=== PATIENT | female | born 1965 | race Caucasian/White ===

== ENCOUNTER 2019-08-02 12:01 | Emergency (ER) | payer OTHER ==
[~2019-08-02] VITALS: Ht 170.2 cm; Wt 68.0 kg
[2019-08-02] MEDS ORDERED: SODIUM CHLORIDE 0.9% 1,000 ML IV ONE ×3 (12:42→20:00)
[2019-08-02] MEDS ORDERED: chlordiazePOXIDE HCL 5 MG CAP PO ONE (12:45)
[2019-08-02] MEDS ORDERED: THIAMINE 100mg/ml INJ (200mg/2ml VIAL) IV ONE (12:45)
[2019-08-02 12:55] LABS: Urine Bacteria FEW /hpf (None Seen); Urine Blood Negative /uL (Negative); Urine Mucus FEW (None Seen); Urine Specific Gravity 1.005 (1.001-1.035); Urine WBC 21 /hpf (0 - 5)
[2019-08-02 13:05] LABS: Basophils # (auto) 0 uL; Basophils % (auto) 1.1 % (0.0-2.0); Eosinophils # (auto) 0.1 uL; Eosinophils % (auto) 2.7 % (0.0-7.0); Hematocrit 43.1 % (36.0-46.0); Hemoglobin 14.9 g/dL (12.2-16.2); Lymphocytes # (auto) 1.1 uL; Lymphocytes % (auto) 36.8 % (10.0-50.0); Mean Corpuscular Hemoglobin 32.7 pg (28.0-32.0); Mean Corpuscular Hgb Conc. 34.5 g/dL (32.0-36.0); Mean Corpuscular Volume 94.8 fL (80.0-100.0); Monocytes # (auto) 0.2 uL; Monocytes % (auto) 7.9 % (0.0-12.0); Neutrophils # (auto) 1.6 uL; Neutrophils % (auto) 51.5 % (37.0-80.0); Nucleated Red Blood Cells % 0.2 %; Platelet Count (auto) 228 10^3/uL (140-450); Red Blood Cells 4.54 10^6/uL (4.0-5.20); Red Cell Distribution Width 13.1 % (11.8-14.3)
[2019-08-02 13:10] LABS: Amphetamine Screen, Urine NEGATIVE (NEGATIVE); Barbiturate Scree,Urine NEGATIVE (NEGATIVE); Benzodiazephine Screen, Urine NEGATIVE (NEGATIVE); Cannabinoid Screen, Urine POSITIVE (NEGATIVE); Cocaine Screen, Urine NEGATIVE (NEGATIVE); Opiate Scree,Urine NEGATIVE (NEGATIVE); Phencyclidine Screen, Urine NEGATIVE (NEGATIVE)
[2019-08-02 13:26] LABS: Albumin 3.5 g/dL (3.4-5.0); BUN/Creatinine Ratio 18.3; Calcium 8.9 mg/dL (8.5-10.1); Potassium 3.9 mmol/L (3.5-5.1)
[2019-08-02 13:27] LABS: Salicylate 2.8 mg/dL (2.8-20.0)
[2019-08-02 13:28] LABS: Acetaminophen < 2.0 ug/mL (10-30)
[2019-08-02 13:42] LABS: Bilirubin, Total 0.2 mg/dL (0.2-1.0); Total Protein 7.5 g/dL (6.4-8.2)
[2019-08-02] MEDS ORDERED: ACETAMINOPHEN 325 MG TAB PO ONE (22:15)
[2019-08-03] MEDS ORDERED: LORazepam 0.5 MG TAB PO ONE (07:45)
[2019-08-03 07:57] VITALS: BP 155/119
== END 2019-08-03 08:19 | disposition short-term general hospital (02) ==
LOC: EDBD 12:01 → ER 12:08
DX: S61.512A Laceration without foreign body of left wrist, initial encounter (principal); R45.851 Suicidal ideations; N39.0 Urinary tract infection, site not specified; F32.9 Major depressive disorder, single episode, unspecified; F10.129 Alcohol abuse with intoxication, unspecified; W26.9XXA Contact with unspecified sharp object(s), initial encounter; Y93.89 Activity, other specified; Y99.8 Other external cause status; Y92.89 Other specified places as the place of occurrence of the external cause
CPT/HCPCS: 36415; 80053; 80307; 80320; 80329; 81001; 85025; 96374; 99285; J3411

== ENCOUNTER 2019-09-14 15:01 | Emergency (ER) | payer OTHER ==
[~2019-09-14] VITALS: Ht 165.1 cm; Wt 72.6 kg
[2019-09-14] MEDS ORDERED: SODIUM CHLORIDE 0.9% 1,000 ML IVB ONE (15:29)
[2019-09-14 15:49] LABS: Basophils # (auto) 0 uL; Basophils % (auto) 0.5 % (0.0-2.0); Eosinophils # (auto) 0 uL; Eosinophils % (auto) 0.8 % (0.0-7.0); Hematocrit 44.6 % (36.0-46.0); Hemoglobin 15.3 g/dL (12.2-16.2); Lymphocytes # (auto) 1.1 uL; Mean Corpuscular Hgb Conc. 34.3 g/dL (32.0-36.0); Mean Corpuscular Volume 93.3 fL (80.0-100.0); Monocytes # (auto) 0.2 uL; Monocytes % (auto) 5.9 % (0.0-12.0); Neutrophils # (auto) 2.3 uL; Neutrophils % (auto) 62.8 % (37.0-80.0); Platelet Count (auto) 214 10^3/uL (140-450); Red Blood Cells 4.78 10^6/uL (4.0-5.20); Red Cell Distribution Width 13.1 % (11.8-14.3); White Blood Cell 3.7 10^3/uL (4.4-10.8)
[2019-09-14 16:10] LABS: Albumin 3.9 g/dL (3.4-5.0); Calcium 9.5 mg/dL (8.5-10.1); Potassium 3.5 mmol/L (3.5-5.1)
[2019-09-14 16:13] LABS: BUN/Creatinine Ratio 12.3; Bilirubin, Total 0.2 mg/dL (0.2-1.0); Total Protein 8.1 g/dL (6.4-8.2)
[2019-09-14 17:18] LABS: Salicylate 3.4 mg/dL (2.8-20.0)
[2019-09-14 17:20] LABS: Acetaminophen < 2.0 ug/mL (10-30)
[2019-09-14] MEDS ORDERED: THIAMINE HCL 100 MG TAB PO ONE (19:00)
[2019-09-15 09:04] LABS: Urine Bacteria MANY /hpf (None Seen); Urine Blood TRACE /uL (Negative); Urine Mucus FEW (None Seen); Urine Specific Gravity 1.017 (1.001-1.035); Urine WBC 265 /hpf (0 - 5)
[2019-09-15 09:11] LABS: Amphetamine Screen, Urine NEGATIVE (NEGATIVE); Barbiturate Scree,Urine NEGATIVE (NEGATIVE); Benzodiazephine Screen, Urine POSITIVE (NEGATIVE); Cannabinoid Screen, Urine POSITIVE (NEGATIVE); Cocaine Screen, Urine NEGATIVE (NEGATIVE); Opiate Scree,Urine NEGATIVE (NEGATIVE); Phencyclidine Screen, Urine NEGATIVE (NEGATIVE)
[2019-09-15] MEDS ORDERED: cefTRIAXone 1GM/50ML D5W 50 ML IV ONE (10:00)
[2019-09-15 11:55] VITALS: BP 108/75
== END 2019-09-15 12:11 | disposition psychiatric hospital, planned readmission (93) ==
LOC: ER 15:01 → EDBD 15:01 → ER 09-15 12:11
DX: T50.902A Poisoning by unspecified drugs, medicaments and biological substances, intentional self-harm, initial encounter (principal); F10.129 Alcohol abuse with intoxication, unspecified; R45.851 Suicidal ideations; F41.9 Anxiety disorder, unspecified; F32.9 Major depressive disorder, single episode, unspecified; Z98.51 Tubal ligation status; Z90.89 Acquired absence of other organs; Y92.89 Other specified places as the place of occurrence of the external cause
CPT/HCPCS: 36415; 80053; 80307; 80320; 80329; 81001; 82962; 85025; 93005; 96365; 99285; J0696

== ENCOUNTER 2020-03-12 15:11 | Inpatient (IN) | payer OTHER ==
[~2020-03-12] VITALS: Ht 154.9 cm; Wt 68.0 kg
[2020-03-12 16:37] LABS: Basophils # (auto) 0 10 ^3/uL (0-0.2); Basophils % (auto) 0.5 % (0.0-2.0); Eosinophils # (auto) 0 10 ^3/uL (0-0.8); Eosinophils % (auto) 1.2 % (0.0-7.0); Lymphocytes # (auto) 0.8 10 ^3/uL (0.4-5.4); Lymphocytes % (auto) 24.2 % (10.0-50.0); Mean Corpuscular Hemoglobin 32.5 pg (28.0-32.0); Mean Corpuscular Hgb Conc. 33.2 g/dL (32.0-36.0); Mean Corpuscular Volume 97.8 fL (80.0-100.0); Monocytes # (auto) 0.2 10 ^3/uL (0-1.3); Neutrophils # (auto) 2.4 10 ^3/uL (1.6-8.6); Neutrophils % (auto) 68.1 % (37.0-80.0); Nucleated Red Blood Cells % 0.1 %; Platelet Count (auto) 200 10^3/uL (140-450); White Blood Cell 3.5 10^3/uL (4.4-10.8)
[2020-03-12] MEDS ORDERED: SODIUM CHLORIDE 0.9% 1,000 ML IV ONE ×2 (16:45→20:45)
[2020-03-12 16:55] LABS: Acetaminophen < 2.0 ug/mL (10-30); Albumin 3.4 g/dL (3.4-5.0); BUN/Creatinine Ratio 17.1; Calcium 9.3 mg/dL (8.5-10.1); Magnesium 2.4 mg/dL (1.6-2.6); Potassium 3.4 mmol/L (3.5-5.1); Salicylate < 1.7 mg/dL (2.8-20.0)
[2020-03-12 17:01] LABS: Bilirubin, Total 0.3 mg/dL (0.2-1.0); Total Protein 6.9 g/dL (6.4-8.2)
[2020-03-12 20:19] LABS: Urine Bacteria NONE SEEN /hpf (None Seen); Urine Blood Negative /uL (Negative); Urine Specific Gravity 1.007 (1.001-1.035); Urine WBC 1 /hpf (0 - 5)
[2020-03-12 20:42] LABS: Amphetamine Screen, Urine NEGATIVE (NEGATIVE); Barbiturate Scree,Urine NEGATIVE (NEGATIVE); Benzodiazephine Screen, Urine NEGATIVE (NEGATIVE); Cannabinoid Screen, Urine POSITIVE (NEGATIVE); Cocaine Screen, Urine NEGATIVE (NEGATIVE); Opiate Scree,Urine NEGATIVE (NEGATIVE); Phencyclidine Screen, Urine NEGATIVE (NEGATIVE)
[2020-03-12] MEDS ORDERED: ONDANSETRON HCL 4 MG/2 ML VIAL IV PRN (21:30)
[2020-03-12] MEDS ORDERED: ACETAMINOPHEN 325 MG TAB PO PRN (21:30)
[2020-03-12] MEDS: FAMOTIDINE 20 MG TAB PO SCH (22:59)
[2020-03-12] MEDS: SODIUM CHLORIDE 0.9% 1,000 ML IV SCH (23:00)
[2020-03-13] MEDS: FAMOTIDINE 20 MG TAB PO SCH ×2 (10:06→21:31)
[2020-03-13] MEDS: SODIUM CHLORIDE 0.9% 1,000 ML IV SCH (11:02)
[2020-03-13] MEDS ORDERED: chlordiazePOXIDE HCL 25 MG CAP PO PRN (11:45)
[2020-03-13] MEDS: FOLIC ACID 1 MG, MULTIPLE VITAMIN 10 ML, MAGNESIUM SULF SDV 50% 8 MEQ, THIAMINE INJ 100... INJ SCH ×5 (12:30)
[2020-03-13 17:00] VITALS: BP 123/81
[2020-03-13 17:47] VITALS: BP 123/81
[2020-03-13] MEDS ORDERED: FLUO60TA7 PO (17:49)
--- NOTE | 2020-03-13 19:00 | NUR ---
Opening Shift Note Assumed care of patient, awake and alert. No S/S of distress/SOB or pain. Instructed on POC and to call for assist PRN, will continue to monitor for changes Q1hr and PRN.
--- NOTE | 2020-03-13 20:00 | NUR ---
IMPORTANT INFORMATION. I WAS ASSESSING MY PATIENT TODAY, PATIENT TOLD ME SHE HAS AN ALCOHOL PROBLEM. SHE SAID SHE GETS REALLY DRUNK 1 TIME PER WEEK. PATIENT SAID SHE DOES NOT REMEMBER AND DID NOT TAKE THE OVER DOSE OF PROZAC INTENTIONALLY. SHE SAID SHE WAS BLACKOUT DRUNK AT THE TIME. PATIENT SAID SHE INTENDS TO SEEK PSYCHOLOGICAL HELP AND ATTEND AA.
[2020-03-13 21:54] VITALS: BP 123/82
--- NOTE | 2020-03-14 | NUR ---
Rounds Patient is asleep.. No S/S of distress/SOB or pain. Will continue to monitor changes q1hr and PRN.
[2020-03-14 04:33] VITALS: BP 126/84
[2020-03-14] MEDS: SODIUM CHLORIDE 0.9% 1,000 ML IV SCH ×2 (04:47→13:32)
[2020-03-14 09:00] VITALS: BP 144/74
[2020-03-14] MEDS: FAMOTIDINE 20 MG TAB PO SCH ×2 (09:51→22:09)
[2020-03-14 09:58] LABS: Albumin 3.1 g/dL (3.4-5.0); Anion Gap 6 (5-15); Blood Urea Nitrogen 12 mg/dL (7-18); Calcium 8.5 mg/dL (8.5-10.1); Carbon Dioxide 26 mmol/L (21-32); Chloride 105 mmol/L (98-107); Glucose 82 mg/dL (74-106); Potassium 3.8 mmol/L (3.5-5.1); Sodium 137 mmol/L (136-145)
[2020-03-14 10:04] LABS: Alanine Aminotransferase 33 U/L (13-56); Alkaline Phosphatase 49 U/L (45-117); Aspartate Aminotransferase 20 U/L (15-37); Bilirubin, Total 0.5 mg/dL (0.2-1.0); Blood Alcohol < 3.0 mg/dL (0-5); GFR African American 103 mL/min; GFR Non-African American 85 mL/min; Total Protein 6.6 g/dL (6.4-8.2)
--- NOTE | 2020-03-14 11:00 | NUR ---
Called [facility] and spoke with Aimee cash regarding the patient being transferred, she stated they need the 5150 and the Tele Psych Report for the patient, express to her that I didn't have the 5150 and would fax the clinical information when it was available to me.
[2020-03-14 13:00] VITALS: BP_SYST 79
[2020-03-14] MEDS: FOLIC ACID 1 MG, MULTIPLE VITAMIN 10 ML, MAGNESIUM SULF SDV 50% 8 MEQ, THIAMINE INJ 100... INJ SCH ×5 (13:32)
[2020-03-14 16:36] VITALS: BP 133/88
[2020-03-14] MEDS ORDERED: FLUO1TAB14 PO (16:51)
--- NOTE | 2020-03-14 16:51 | NUR ---
PT ASKING FOR MD TO CALL VIKKI AT [phone]. INFORMED DR CHÁVEZ.
[2020-03-14 22:00] VITALS: BP 136/91
[2020-03-15] MEDS: SODIUM CHLORIDE 0.9% 1,000 ML IV SCH ×2 (04:58→16:45)
[2020-03-15 05:00] VITALS: BP 129/75
[2020-03-15 08:00] VITALS: BP 128/70
[2020-03-15 09:00] VITALS: BP 145/94
[2020-03-15] MEDS: FAMOTIDINE 20 MG TAB PO SCH (09:47)
--- NOTE | 2020-03-15 09:52 | NUR ---
assessment Patient is a 54 year old female who is alert and oriented. Prior to admission patient resided with her Preet and was independent. Patient informed me she needs AA. Patient informed me she is not an everyday drinker, but binge drinks Vodka once a week. Patient informed me does not remember taking pills. The last thing she remembered was drinking vodka and downing some whiskey. Per patient her informed her that she got into her husbands safe and took some pills. Patient doesn't remember anything after drinking the vodka and whiskey. Patient is not suicidal at this time. Patient does have a history of suicide attempt when she is drinking. I will provide patient with AA meeting time and phone number. Patient will be transferred to Psych facility per tele psych recommendation. I will continue to monitor and follow up as appropriate. Addendum: 03/15/20 at 0959 by Radha CESAR Amended: Links added.
--- NOTE | 2020-03-15 10:09 | NUR ---
03/15/2020 7717 Faxed to [facility], face sheet, Ct head, covid,discharge summary, h&p, progress notes, labs, med list, post stabilization form, tele psych report,[id number], Requesting transfer to in patient psych facility through md [facility] transfer order, Will scan into [facility]
--- NOTE | 2020-03-15 11:20 | NUR ---
03/15/2020 1120 Called [facility] and spoke with Lori research and evaluation analyst, stated they received the clinical packet regarding the transfer of the patient to a in patient Psych Facility, stated she has assigned the case to Hanna HUNTER, gave her contact information, regarding the room number 223, nurse name Daniel Keys, phone # [phone] ext. [phone] and information for getting in touch with DR. Rich Smith by calling [phone] and asking the painting machine operator to page him, my contact information, Sunita HUNTER at [phone] ext [phone].
[2020-03-15] MEDS: FOLIC ACID 1 MG, MULTIPLE VITAMIN 10 ML, MAGNESIUM SULF SDV 50% 8 MEQ, THIAMINE INJ 100... INJ SCH ×5 (12:13)
[2020-03-15 13:00] VITALS: BP 140/77
--- NOTE | 2020-03-15 16:50 | NUR ---
RECEIVED ORDER FROM DR. STUBBS TO DISCONTINUE BANANA BAG . WILL CARRY OUT ORDER. Addendum: 03/15/20 at 1653 by Daniel Stinson RN RN RECEIVED ORDER FROM DR. CHÁVEZ TO DISCONTINUE BANANA BAG. WILL CARRY OUT ORDER.
[2020-03-15 17:00] VITALS: BP 128/90
[2020-03-15 20:00] VITALS: BP 128/70
--- NOTE | 2020-03-15 20:10 | NUR ---
report called to [facility] spoke with Naye. Pt is go to room 709 bed 2. IV removed. Pt is aware, has notified , affect is bright, behavior appropriate.
--- NOTE | 2020-03-15 21:25 | NUR ---
pt left facility at 2121, in stable condition, IV removed site free from s/s, all belongings taken, no s/s of distress, affect bright.
== END 2020-03-15 21:22 | disposition short-term general hospital (02) | DRG 917 ==
LOC: EDBD 15:11 → ER 15:11 → EDUNIT# 15:11 → TELE 15:12 → TELE-CENTR 03-13 17:05
PROVIDERS: ADMIT Nurse Practitioner; ATTEND Family Medicine
DX: T43.222A Poisoning by selective serotonin reuptake inhibitors, intentional self-harm, initial encounter (principal); G92 Toxic encephalopathy; Z20.828 Contact with and (suspected) exposure to other viral communicable diseases; F12.90 Cannabis use, unspecified, uncomplicated; F17.210 Nicotine dependence, cigarettes, uncomplicated; F32.9 Major depressive disorder, single episode, unspecified; F41.9 Anxiety disorder, unspecified; E86.0 Dehydration; F10.129 Alcohol abuse with intoxication, unspecified; Y90.6 Blood alcohol level of 120-199 mg/100 ml; I95.9 Hypotension, unspecified; Y92.89 Other specified places as the place of occurrence of the external cause; Z91.5 Personal history of self-harm; Z83.3 Family history of diabetes mellitus; Z79.899 Other long term (current) drug therapy
CPT/HCPCS: 36415; 70450; 80053; 80307; 80320; 80329; 81001; 83735; 85025; 93005; 96361; 96365; 99291; G0378